=== PATIENT | female | born 1975 | race Caucasian/White ===

== ENCOUNTER 2020-12-05 12:33 | Inpatient (IN) ==
[2020-12-05 14:09] LABS: Basophils # 0.1 K/mcL (0.0-0.2); Basophils % 0.4 %; Eosinophils % 0.3 %; Hematocrit 41.7 % (35.3-44.9); Hemoglobin 14.1 g/dL (11.5-15.4); Immature Granulocytes % 0.5 % (0-4); Lymphocytes # 1.5 K/mcL (0.6-4.6); Lymphocytes % 10.3 %; Mean Corpuscular HGB Conc 33.8 g/dL (31.6-35.5); Mean Corpuscular Hemoglobin 30.8 pg (28.0-33.3); Monocytes # 1.7 K/mcL (0.0-1.3); Monocytes % 11.8 %; Neutrophils # 11.3 K/mcL (1.6-8.9); Platelet Count 295 K/mcL (140-400); Red Blood Count 4.58 M/mcL (3.82-4.97); Red Cell Distribution Width 12.7 % (11.5-14.5); Segmented Neutrophils % 76.7 %; White Blood Count 14.7 K/mcL (4.3-11.1)
[2020-12-05 14:15] LABS: Amorphous Sediment,Urine Few per hpf (None-Few); Bacteria,Urine Few per hpf (None-Few); Bilirubin,Urine Negative (Negative); Blood,Urine Trace (Negative); Clarity,Urine Turbid (Clear); Color,Urine Light-Yellow (Yellow); Glucose,Urine (UA) Normal (Normal); Ketones,Urine Negative (Negative); Leukocyte Esterase,Urine Large (Negative); Mucus,Urine Few per lpf (None-Few); Nitrite,Urine Negative (Negative); PH,Urine 6.5 pH Units (5.0-8.0); Protein,Urine 30 mg/dL (Neg-Trace); RBC,Urine 0-3 per hpf (0-3); Specific Gravity,Urine 1.012 (1.010-1.025); Squamous Epithelial Cell,Urine Few per hpf (None-Few); Urobilinogen,Urine Normal (Normal); WBC,Urine TNTC per hpf (0-3)
[2020-12-05 14:45] LABS: Alanine Aminotransferase 21 Units/L (7-52); Albumin 3.8 g/dL (3.5-5.7); Albumin/Globulin Ratio 1.2 (1.1-2.2); Alkaline Phosphatase 77 Units/L (34-104); Amylase 17 Units/L (29-103); Aspartate Amino Transferase 15 Units/L (13-39); BUN/Creatinine Ratio 8 (6-26); Bilirubin,Direct 0.1 mg/dL (0.0-0.2); Bilirubin,Indirect 0.3 mg/dL (0.0-1.0); Bilirubin,Total 0.4 mg/dL (0.3-1.0); Blood Urea Nitrogen 5 mg/dL (6-20); Calcium 8.7 mg/dL (8.6-10.3); Carbon Dioxide 28 mEq/L (23-29); Chloride 97 mEq/L (98-107); Globulin 3.2 g/dL (2.4-3.5); Glucose 107 mg/dL (70-105); Lipase 3 Units/L (11-82); Osmolality,Calculated 276 (280-300); Potassium 2.7 mEq/L (3.5-5.1); Sodium 134 mEq/L (136-145); eGFR For African Americans > 60 (> 60); eGFR For Non-African Americans > 60 (> 60)
[2020-12-05] MEDS ORDERED: Ketorolac 30 MG/ML VIAL IVP ONE (16:21)
[2020-12-05] MEDS ORDERED: 0.9 % Sodium Chloride 1,000 ML IV ONE (16:42)
[2020-12-05] MEDS ORDERED: *HR* HYDROmorphone (PF) 1 MG/ML SYRINGE IVP ONE (16:42)
[2020-12-05 17:45] LABS: Bacteria,Urine Few per hpf (None-Few); Bilirubin,Urine Negative (Negative); Blood,Urine Small (Negative); Clarity,Urine Turbid (Clear); Color,Urine Yellow (Yellow); Glucose,Urine (UA) Normal (Normal); Ketones,Urine Negative (Negative); Leukocyte Esterase,Urine Large (Negative); Nitrite,Urine Positive (Negative); PH,Urine 6.5 pH Units (5.0-8.0); Protein,Urine 50 mg/dL (Neg-Trace); Specific Gravity,Urine 1.013 (1.010-1.025); Squamous Epithelial Cell,Urine Few per hpf (None-Few); Urobilinogen,Urine Normal (Normal); WBC,Urine TNTC per hpf (0-3)
[2020-12-05 18:16] LABS: Candida DNA Not Detected (Not Detect); Gardnerella DNA DETECTED (Not Detect); Trichomonas DNA Not Detected (Not Detect)
[2020-12-05] MEDS ORDERED: Clindamycin 900 MG/50 ML 900 MG/50 ML IV.SOLN IVPB ONE (19:10)
[2020-12-05] MEDS ORDERED: Gentamicin 310 MG in 0.9 % Sodium Chloride 100 ML IVPB ONE (19:12)
[2020-12-05] MEDS ORDERED: Naloxone 0.4 MG/ML INJ IVP PRN (20:49)
[2020-12-05] MEDS ORDERED: Potassium Chloride Elixir 20 MEQ/15 ML UDC PO ONE ×2 (21:59→22:00)
[2020-12-05] MEDS: Clindamycin 900 MG/50 ML 900 MG/50 ML IV.SOLN IVPB SCH (22:20)
[2020-12-05] MEDS: Ringers Solution, Lactated 1,000 ML IVC SCH (22:20)
[2020-12-05] MEDS: Gabapentin 400 MG CAPSULE PO SCH (22:21)
[2020-12-05] MEDS: metroNIDAZOLE 500 MG TABLET PO SCH (22:22)
[2020-12-06] MEDS: Ketorolac 30 MG/ML VIAL IVP SCH ×3 (00:57→12:09)
[2020-12-06] MEDS: Acetaminophen 325 MG TABLET PO SCH ×4 (01:02→18:13)
[2020-12-06] MEDS: Ringers Solution, Lactated 1,000 ML IVC SCH ×3 (04:14→18:13)
[2020-12-06 05:30] LABS: Basophils % 0.4 %; Eosinophils # 0.1 K/mcL (0.0-0.6); Eosinophils % 0.6 %; Hematocrit 37.3 % (35.3-44.9); Immature Granulocytes % 0.5 % (0-4); Lymphocytes # 1.6 K/mcL (0.6-4.6); Lymphocytes % 13.9 %; Mean Corpuscular HGB Conc 33.2 g/dL (31.6-35.5); Mean Corpuscular Hemoglobin 31.2 pg (28.0-33.3); Mean Corpuscular Volume 93.7 fL (83.0-100.0); Mean Platelet Volume 11.5 fL (9.4-12.4); Monocytes # 1.4 K/mcL (0.0-1.3); Monocytes % 12.7 %; Neutrophils # 8.1 K/mcL (1.6-8.9); Platelet Count 269 K/mcL (140-400); Red Blood Count 3.98 M/mcL (3.82-4.97); Red Cell Distribution Width 12.6 % (11.5-14.5); Segmented Neutrophils % 71.9 %; White Blood Count 11.2 K/mcL (4.3-11.1)
[2020-12-06 05:31] LABS: Hemoglobin 12.4 g/dL (11.5-15.4)
[2020-12-06] MEDS: Nitrofurantoin (BID) 100 MG CAPSULE PO SCH ×2 (08:10→15:52)
[2020-12-06] MEDS: Gabapentin 400 MG CAPSULE PO SCH ×3 (08:10→20:51)
[2020-12-06] MEDS: metroNIDAZOLE 500 MG TABLET PO SCH ×2 (08:10→20:51)
[2020-12-06] MEDS: Clindamycin 900 MG/50 ML 900 MG/50 ML IV.SOLN IVPB SCH ×2 (08:11→15:52)
[2020-12-06] MEDS: *HR* OxyCODONE/APAP 5/325 TABLET PO PRN ×2 (15:58→22:21)
[2020-12-06 16:44] VITALS: O2SAT 97
[2020-12-06] MEDS ORDERED: Gentamicin 340 MG in 0.9 % Sodium Chloride 100 ML IVPB SCH (19:00)
[2020-12-07] MEDS: Clindamycin 900 MG/50 ML 900 MG/50 ML IV.SOLN IVPB SCH (00:22)
[2020-12-07] MEDS: Acetaminophen 325 MG TABLET PO SCH ×3 (00:23→11:18)
[2020-12-07] MEDS: Ringers Solution, Lactated 1,000 ML IVC SCH (01:34)
[2020-12-07] MEDS: *HR* OxyCODONE/APAP 5/325 TABLET PO PRN ×2 (04:37→11:16)
[2020-12-07 07:42] VITALS: BP 89/50; PULSE 68; TEMP 99.6
[2020-12-07] MEDS: Gabapentin 400 MG CAPSULE PO SCH ×2 (09:15→15:03)
[2020-12-07] MEDS: metroNIDAZOLE 500 MG TABLET PO SCH (09:15)
[2020-12-07] MEDS: Nitrofurantoin (BID) 100 MG CAPSULE PO SCH (09:15)
[2020-12-07 10:24] LABS: Basophils # 0.1 K/mcL (0.0-0.2); Basophils % 0.5 %; Eosinophils # 0.2 K/mcL (0.0-0.6); Eosinophils % 1.7 %; Hematocrit 32.7 % (35.3-44.9); Hemoglobin 11.4 g/dL (11.5-15.4); Immature Granulocytes % 0.4 % (0-4); Lymphocytes # 1.8 K/mcL (0.6-4.6); Lymphocytes % 18.7 %; Mean Corpuscular HGB Conc 34.9 g/dL (31.6-35.5); Mean Corpuscular Hemoglobin 31.2 pg (28.0-33.3); Mean Corpuscular Volume 89.6 fL (83.0-100.0); Monocytes # 1.3 K/mcL (0.0-1.3); Monocytes % 13.5 %; Neutrophils # 6.3 K/mcL (1.6-8.9); Platelet Count 263 K/mcL (140-400); Red Blood Count 3.65 M/mcL (3.82-4.97); Red Cell Distribution Width 12.6 % (11.5-14.5); Segmented Neutrophils % 65.2 %; White Blood Count 9.7 K/mcL (4.3-11.1)
[2020-12-07 10:43] LABS: Alanine Aminotransferase 14 Units/L (7-52); Albumin 2.8 g/dL (3.5-5.7); Albumin/Globulin Ratio 1.1 (1.1-2.2); Aspartate Amino Transferase 13 Units/L (13-39); BUN/Creatinine Ratio 10 (6-26); Bilirubin,Total 0.2 mg/dL (0.3-1.0); Blood Urea Nitrogen 5 mg/dL (6-20); Calcium 8.2 mg/dL (8.6-10.3); Carbon Dioxide 28 mEq/L (23-29); Chloride 106 mEq/L (98-107); Globulin 2.5 g/dL (2.4-3.5); Glucose 72 mg/dL (70-105); Osmolality,Calculated 284 (280-300); Sodium 139 mEq/L (136-145); Total Protein 5.3 g/dL (6.4-8.9); eGFR For African Americans > 60 (> 60); eGFR For Non-African Americans > 60 (> 60)
[2020-12-07 11:27] LABS: Alkaline Phosphatase 52 Units/L (34-104)
== END 2020-12-07 15:28 | disposition home or self-care (01) | DRG 517 ==
LOC: EMEROOARM 12:33 → 3BNU 12:33 → 1NENUOBS 20:29
PROVIDERS: ADMIT Student in an Organized Health Care Education/Training Program; ATTEND Student in an Organized Health Care Education/Training Program